=== PATIENT | male | born 1950 | race Caucasian/White ===

== ENCOUNTER → 2016-10-08 | Outpatient (CLI) | payer MEDICARE ==
[~2016-10-08] MED LIST: ALTACE 10MG TAB10 MG PO; FARXIGA10 PO; GLUCOPHAGE500 MG/TAB PO; GUAIFEN AC 10120 ML PO; LANTUS100 U/ML SC; TENORMIN 5050 MG/TAB PO; ZOCOR 10MG10 MG PO
== END ==
LOC: COL.RAD 13:30
DX: N43.2 Other hydrocele (principal)

== ENCOUNTER → 2016-10-22 | Outpatient (CLI) | payer MEDICARE | LOC: COL.RAD 14:16 | DX: M79.644 Pain in right finger(s) (principal) | CPT/HCPCS: J3301; Q9967 ==

== ENCOUNTER → 2017-01-17 | Outpatient (CLI) | payer MEDICARE | LOC: COL.RAD 08:24 | DX: M16.12 Unilateral primary osteoarthritis, left hip (principal); M25.552 Pain in left hip | CPT/HCPCS: J3301; Q9967 ==

== ENCOUNTER → 2017-06-25 | Outpatient (CLI) | payer MEDICARE | LOC: COL.RAD 09:49 | DX: M16.12 Unilateral primary osteoarthritis, left hip (principal) | CPT/HCPCS: J3301; Q9967 ==

== ENCOUNTER → 2018-06-11 | Outpatient (CLI) | payer MEDICARE | LOC: COL.RAD 07:48 | DX: M25.552 Pain in left hip (principal) | CPT/HCPCS: J3301; Q9967 ==

== ENCOUNTER → 2019-06-10 | Outpatient (CLI) | payer MEDICARE | LOC: COL.RAD 07:49 | DX: M25.552 Pain in left hip (principal) | CPT/HCPCS: J3301; Q9967 ==

== ENCOUNTER → 2021-08-30 | Outpatient (CLI) | payer MEDICARE | LOC: COL.RAD 13:07 | DX: M25.552 Pain in left hip (principal) | CPT/HCPCS: J3301; Q9967 ==

== ENCOUNTER → 2023-09-09 | Outpatient (CLI) | payer MEDICARE | LOC: DIA.ED 11:09 | DX: E11.22 Type 2 diabetes mellitus with diabetic chronic kidney disease (principal); N18.9 Chronic kidney disease, unspecified; E11.40 Type 2 diabetes mellitus with diabetic neuropathy, unspecified; Z79.4 Long term (current) use of insulin; I10 Essential (primary) hypertension | CPT/HCPCS: G0108 ==

== ENCOUNTER → 2023-09-23 | Outpatient (CLI) | payer MEDICARE | LOC: DIA.ED 06:34 | DX: E11.22 Type 2 diabetes mellitus with diabetic chronic kidney disease (principal); N18.9 Chronic kidney disease, unspecified; Z79.4 Long term (current) use of insulin; I10 Essential (primary) hypertension ==

== ENCOUNTER → 2023-12-02 | Outpatient (CLI) | payer MEDICARE | LOC: DIA.ED 10:44 | DX: E11.22 Type 2 diabetes mellitus with diabetic chronic kidney disease (principal); N18.9 Chronic kidney disease, unspecified; Z79.4 Long term (current) use of insulin; I10 Essential (primary) hypertension | CPT/HCPCS: G0108 ==